=== PATIENT | female | born 1950 | race African-American/Black ===

== ENCOUNTER 2016-09-22 19:01 | Emergency (ER) | payer MEDICAID ==
[~2016-09-22] VITALS: Ht 165.1 cm; Wt 81.0 kg
[~2016-09-22 19:01] MED LIST: ALBUTEROL; CLARITIN; INHALER; LOSARTAN; MOTRIN; ZANTAC
[2016-09-22] MEDS ORDERED: METHYLPREDNISOLONE SOD SUCC 125 MG/2 ML VIAL IV STA (20:26)
[2016-09-22] MEDS ORDERED: ALBUTEROL (0.083%) 2.5MG/3ML NEB HHN STA (20:26)
[2016-09-22] MEDS ORDERED: IPRATROPIUM BROMIDE (0.02%) 0.5MG/2.5ML NEB HHN STA (20:26)
[2016-09-22] MEDS ORDERED: MAGNESIUM 2 G PREMIX 50 ML IV ONE (20:30)
[2016-09-22 21:06] LABS: BASOPHILS % 0.5 % (0.0-2.0); HEMATOCRIT. 43.1 % (36.0-48.0); HEMOGLOBIN. 14.4 g/dL (12.0-16.0); LYMPHOCYTES % 16.6 % (20.0-50.0); MEAN CORPUSCULAR HEMOGLOBIN 28.8 pg (28.0-32.0); MEAN CORPUSCULAR HGB CONC 33.4 g/dL (31.0-37.0); MEAN CORPUSCULAR VOLUME 86.5 fL (81.0-99.0); MEAN PLATELET VOLUME 7.9 fl (7.4-10.4); MONOCYTES % 1.6 % (2.0-8.0); NEUTROPHILS % 81.3 % (40.0-76.0); PLATELET 371 x1000/uL (130-400); RED BLOOD CELL COUNT 4.98 mill/uL (4.2-5.4); RED CELL DISTRIBUTION WIDTH 14.4 % (11.6-14.6); WHITE BLOOD COUNT 12.4 x1000/uL (4.5-11.0)
[2016-09-22 21:13] LABS: ALBUMIN 4.3 g/dL (3.4-5.0); ANION GAP 17; CALCIUM 9.8 mg/dL (8.5-10.1); CARBON DIOXIDE 24 mEq/L (21-32); CHLORIDE 105 mEq/L (98-107); INDEX HEMOLYSI 1 (1-3); INDEX ICTERIC 1 (1-4); INDEX LIPEMIC 1 (1-3); UREA NITROGEN BLOOD 9 mg/dL (7-21)
[2016-09-22] MEDS ORDERED: MAGNESIUM/ALUMINUM HYDROXIDE/SIMETHICONE 30ML UDC PO ONE (21:15)
[2016-09-22 21:17] LABS: BG BASE EXCESS 0.9 mmol/L (-2.0-2.0); BG CARBOXYHEMOGLOBIN 0.1 % (0.5-1.5); BG DEOXYHEMOGLOBIN 1.4 % (0.0-5.0); BG FRACTION INSPIRED OXYGEN 28; BG HCO3 ACT 19.7 mmol/L (22.0-26.0); BG METHEMOGLOBIN 0.3 % (0.0-1.5); BG OXYGEN SATURATION 98.6 % (92.0-98.5); BG OXYHEMOGLOBIN 98.2 % (94.0-97.0); BG PCO2 19.9 mmHg (35.0-45.0); BG PH 7.614 (7.350-7.450); BG PO2 127.7 mmHg (75.0-100.0); BG SAMPLE SITE LEFT RADIAL; BG VENT MODE NASAL CANNULA
[2016-09-22 21:20] LABS: ALANINE AMINOTRANSFERASE 34 IU/L (13-61); NT PRO B-TYPE NATRIURETIC PEP 114 pg/mL (5-125); TROPONIN I < 0.02 ng/mL (0.00-0.04); eGFR > 60 mL/min (>60)
[2016-09-22 21:24] LABS: LACTIC ACID 2.5 mmol/L (0.4-2.0)
[2016-09-22] MEDS ORDERED: LEVOFLOXACIN 750MG PREMIX 150 ML IV ONE (23:15)
[2016-09-22 23:27] VITALS: BP 164/101
== END 2016-09-23 00:15 | disposition left against medical advice (07) ==
LOC: ER 19:01
DX: J44.9 Chronic obstructive pulmonary disease, unspecified (principal); I10 Essential (primary) hypertension; K21.9 Gastro-esophageal reflux disease without esophagitis; Z88.6 Allergy status to analgesic agent; Z88.8 Allergy status to other drugs, medicaments and biological substances; Z79.899 Other long term (current) drug therapy
CPT/HCPCS: 36415; 36600; 71010; 80053; 82375; 82805; 83605; 83880; 84484; 85025; 87040; 93005; 94640; 96365; 96366; 96368; 96375; 99285; J1956; J2930; J3475; J7611; Z7610

== ENCOUNTER 2016-09-23 20:36 | Emergency (ER) | payer MEDICAID ==
[~2016-09-23] VITALS: Ht 165.1 cm; Wt 115.0 kg
[2016-09-23] MEDS ORDERED: FAMOTIDINE 20MG/2ML VIAL IV STA (23:48)
[2016-09-23] MEDS ORDERED: MAGNESIUM/ALUMINUM HYDROXIDE/SIMETHICONE 30ML UDC PO STA (23:48)
[2016-09-23] MEDS ORDERED: ONDANSETRON HCL 4MG/2ML VIAL IV STA (23:48)
[2016-09-23] MEDS ORDERED: VISCOUS LIDOCAINE 2% 15 ML UDC PO STA (23:48)
[2016-09-24] MEDS ORDERED: SODIUM CHLORIDE 0.9% 500 ML IV ONE
[2016-09-24] MEDS ORDERED: KETOROLAC 30MG/ML VIAL IV ONE
[2016-09-24 00:27] LABS: BASOPHILS % 0.3 % (0.0-2.0); CHLORIDE 103 mEq/L (98-107); EOSINOPHILS % 0.1 % (0.0-5.0); HEMATOCRIT. 40.3 % (36.0-48.0); HEMOGLOBIN. 13.3 g/dL (12.0-16.0); INDEX HEMOLYSI 1 (1-3); INDEX ICTERIC 1 (1-4); INDEX LIPEMIC 1 (1-3); LYMPHOCYTES % 22.3 % (20.0-50.0); MEAN CORPUSCULAR HEMOGLOBIN 29.1 pg (28.0-32.0); MEAN CORPUSCULAR HGB CONC 33.1 g/dL (31.0-37.0); MEAN CORPUSCULAR VOLUME 87.8 fL (81.0-99.0); MEAN PLATELET VOLUME 7.9 fl (7.4-10.4); MONOCYTES % 8.1 % (2.0-8.0); NEUTROPHILS % 69.2 % (40.0-76.0); PLATELET 348 x1000/uL (130-400); RED BLOOD CELL COUNT 4.59 mill/uL (4.2-5.4); RED CELL DISTRIBUTION WIDTH 14.4 % (11.6-14.6); WHITE BLOOD COUNT 19.3 x1000/uL (4.5-11.0)
[2016-09-24 00:35] LABS: ALANINE AMINOTRANSFERASE 32 IU/L (13-61); ALBUMIN 4.1 g/dL (3.4-5.0); ANION GAP 13; CALCIUM 9.3 mg/dL (8.5-10.1); CARBON DIOXIDE 26 mEq/L (21-32); UREA NITROGEN BLOOD 22 mg/dL (7-21); eGFR 55 mL/min (>60)
[2016-09-24 02:17] VITALS: BP 158/86
[2016-09-24 02:26] LABS: CLARITY URINE CLEAR (CLEAR); COLOR URINE YELLOW (YELLOW); GLUCOSE URINE NEGATIVE (NEGATIVE); KETONES URINE NEGATIVE (NEGATIVE); LEUKOCYTE ESTERASE URINE TRACE (NEGATIVE); NITRITE URINE NEGATIVE (NEGATIVE); OCCULT BLOOD URINE NEGATIVE (NEGATIVE); PROTEIN URINE NEGATIVE (NEGATIVE); SPECIFIC GRAVITY URINE 1.007 (1.005-1.030); UROBILINOGEN URINE 0.2 E.U./dL (0.2-1.0)
[2016-09-24 03:07] LABS: BACTERIA URINE TRACE; RBC URINE 0-2 /hpf (0-2); SQUAMOUS EPITHELIAL CELL URINE 1+ /lpf (RARE/1+); WBC URINE 0-2 /hpf (0-2); YEAST URINE 1+
== END 2016-09-24 02:23 | disposition left against medical advice (07) ==
LOC: ER 21:20
DX: K21.9 Gastro-esophageal reflux disease without esophagitis (principal); R10.31 Right lower quadrant pain; R06.02 Shortness of breath; I10 Essential (primary) hypertension; Z88.5 Allergy status to narcotic agent; Z91.041 Radiographic dye allergy status; Z79.899 Other long term (current) drug therapy; Z90.49 Acquired absence of other specified parts of digestive tract; Z90.710 Acquired absence of both cervix and uterus
CPT/HCPCS: 36415; 71010; 80053; 81001; 83605; 85025; 87040; 93005; 96374; 96375; 99285; J1885; J2405; J3490; J7040; Z7610

== ENCOUNTER 2023-01-24 04:50 | Emergency (ER) | payer MEDICARE, MEDICAID ==
[~2023-01-24] VITALS: Ht 167.6 cm; Wt 122.0 kg
[2023-01-24 05:06] VITALS: O2SAT 99
[2023-01-24 06:00] LABS: HEMATOCRIT. 40.5 % (36.0-48.0); MEAN CORPUSCULAR HEMOGLOBIN 29.1 pg (28.0-32.0); MEAN CORPUSCULAR HGB CONC 32.2 g/dL (31.0-37.0); MEAN CORPUSCULAR VOLUME 90.3 fL (81.0-99.0); MEAN PLATELET VOLUME 8.5 fl (7.4-10.4); PLATELET 263 x1000/uL (130-400); RED BLOOD CELL COUNT 4.49 mill/uL (4.2-5.4); RED CELL DISTRIBUTION WIDTH 14.6 % (11.6-14.6); WHITE BLOOD COUNT 10.4 x1000/uL (4.5-11.0)
[2023-01-24 06:07] LABS: DIFFERENTIAL COMMENT 1
[2023-01-24 06:12] LABS: CHLORIDE 109 mEq/L (98-107); INDEX HEMOLYSI 2 (1-3); INDEX ICTERIC 1 (1-4); INDEX LIPEMIC 1 (1-3); POTASSIUM 3.9 mEq/L (3.5-5.1); SODIUM 139 mEq/L (136-145)
[2023-01-24 06:18] LABS: ALANINE AMINOTRANSFERASE 33 IU/L (13-61); ALBUMIN 3.9 g/dL (3.4-5.0); ASPARTATE AMINOTRANSFERASE 27 IU/L (15-37); BILIRUBIN TOTAL 0.8 mg/dL (0.1-1.0); CALCIUM 9.2 mg/dL (8.5-10.1); CARBON DIOXIDE 21 mEq/L (21-32); CREATININE 0.8 mg/dL (0.6-1.3); GLUCOSE 111 mg/dL (70-105); PROTEIN TOTAL 8.1 g/dL (6.0-8.3); UREA NITROGEN BLOOD 15 mg/dL (7-21)
[2023-01-24 06:53] LABS: CLARITY URINE CLOUDY (CLEAR); COLOR URINE YELLOW (YELLOW); GLUCOSE URINE NEGATIVE (NEGATIVE); KETONES URINE NEGATIVE (NEGATIVE); LEUKOCYTE ESTERASE URINE 3+ (NEGATIVE); NITRITE URINE POSITIVE (NEGATIVE); OCCULT BLOOD URINE 1+ (NEGATIVE); PROTEIN URINE TRACE (NEGATIVE); SPECIFIC GRAVITY URINE 1.007 (1.005-1.030)
[2023-01-24 06:56] LABS: BACTERIA URINE 4+; SQUAMOUS EPITHELIAL CELL URINE NONE SEEN /lpf (RARE/1+)
[2023-01-24 07:08] LABS: PLATELET ESTIMATE NORMAL
[2023-01-24 07:50] LABS: YEAST URINE NONE SEEN
[2023-01-24] MEDS ORDERED: CEFTRIAXONE 1GM PREMIX 50 ML IV ONE (08:15)
[2023-01-24] MEDS ORDERED: IBUP-1525 MT (11:49)
[2023-01-24] MEDS ORDERED: ACET-2708 MT (11:49)
[2023-01-24] MEDS ORDERED: ONDA4TAB50 MT (11:49)
[2023-01-24] MEDS ORDERED: CEFD300C3 MT (11:49)
[2023-01-24 12:37] VITALS: BP 144/74; PULSE 76; RESP 20; TEMP 99.4
== END 2023-01-24 08:00 | disposition home or self-care (01) ==
LOC: ER 04:50
DX: R10.9 Unspecified abdominal pain (principal); R11.2 Nausea with vomiting, unspecified; K21.9 Gastro-esophageal reflux disease without esophagitis; I10 Essential (primary) hypertension; Z90.710 Acquired absence of both cervix and uterus; Z90.49 Acquired absence of other specified parts of digestive tract; Z20.822 Contact with and (suspected) exposure to COVID-19
CPT/HCPCS: 80053; 81003; 83605; 83690; 85025; 87040; 87086; 87186; 87077; 36415; 74176; 96365; 99285; 87426; J0696; C9803; Z7610

== ENCOUNTER 2023-12-12 04:05 | Emergency (ER) | payer MEDICARE, MEDICAID ==
[~2023-12-12] VITALS: Ht 167.6 cm; Wt 82.0 kg
[~2023-12-12 04:05] MED LIST changes: +ACET-2708 MT; +CEFD300C3 MT; +IBUP-1525 MT; +ONDA4TAB50 MT
[2023-12-12] MEDS ORDERED: PREDNISONE 20MG TABLET PO STA (04:25)
[2023-12-12] MEDS: ALBUTEROL (0.083%) 2.5MG/3ML NEB HHN STA (04:41)
[2023-12-12] MEDS: IPRATROPIUM BROMIDE (0.02%) 0.5MG/2.5ML NEB HHN STA (04:41)
[2023-12-12 05:19] VITALS: PULSE 77; RESP 20; O2SAT 94
[2023-12-12] MEDS: PREDNISONE 20MG TABLET PO NR (05:27)
[2023-12-12 06:01] LABS: BASOPHILS % 0.4 % (0.0-2.0); HEMOGLOBIN. 12.8 g/dL (12.0-16.0); LYMPHOCYTES % 34.4 % (20.0-50.0); MEAN CORPUSCULAR HEMOGLOBIN 29.6 pg (28.0-32.0); MEAN CORPUSCULAR HGB CONC 32.8 g/dL (31.0-37.0); MEAN CORPUSCULAR VOLUME 90.2 fL (81.0-99.0); MEAN PLATELET VOLUME 8.5 fl (7.4-10.4); MONOCYTES % 10.4 % (2.0-8.0); NEUTROPHILS % 53.8 % (40.0-76.0); PLATELET 251 x1000/uL (130-400); RED BLOOD CELL COUNT 4.32 mill/uL (4.2-5.4); RED CELL DISTRIBUTION WIDTH 15.1 % (11.6-14.6); WHITE BLOOD COUNT 9.7 x1000/uL (4.5-11.0)
[2023-12-12] MEDS: PREDNISONE 20MG TABLET PO STA (06:07)
[2023-12-12 06:10] LABS: CHLORIDE 107 mEq/L (98-107); POTASSIUM 3.7 mEq/L (3.5-5.1); SODIUM 142 mEq/L (136-145)
[2023-12-12 06:11] LABS: CARBON DIOXIDE 28 mEq/L (21-32)
[2023-12-12 06:12] LABS: CALCIUM 9.8 mg/dL (8.7-10.4)
[2023-12-12 06:16] LABS: CREATININE 0.8 mg/dL (0.6-1.0); GLUCOSE 130 mg/dL (70-105); UREA NITROGEN BLOOD 13 mg/dL (9-23)
[2023-12-12 06:18] LABS: TROPONIN I HIGH SENSITIVITY < 4 ng/L (3.0-34)
[2023-12-12 06:19] LABS: PARTIAL THROMBOPLASTIN TIME 27.6 sec (23.4-31.0)
[2023-12-12 07:55] VITALS: BP 150/80; PULSE 74; RESP 18; TEMP 97.8
[2023-12-12] MEDS ORDERED: P50 MT (07:59)
== END 2023-12-12 08:40 | disposition home or self-care (01) ==
LOC: ER 04:26
DX: J45.901 Unspecified asthma with (acute) exacerbation (principal); I10 Essential (primary) hypertension; Z88.5 Allergy status to narcotic agent; Z91.041 Radiographic dye allergy status; Z79.899 Other long term (current) drug therapy; Z98.890 Other specified postprocedural states
CPT/HCPCS: 99285; 71045; 80048; 83880; 85025; 85610; 85730; 84484; 36415; 94640; 93005; J7512

== ENCOUNTER 2024-01-05 12:52 | Emergency (ER) | payer MEDICARE, MEDICAID ==
[~2024-01-05] VITALS: Ht 165.1 cm; Wt 127.0 kg
[~2024-01-05 12:52] MED LIST changes: +P50 MT
[2024-01-05 13:01] VITALS: BP 197/88; PULSE 81; RESP 20; TEMP 98; O2SAT 99
[2024-01-05 13:22] LABS: BASOPHILS % 0.5 % (0.0-2.0); EOSINOPHILS % 0.5 % (0.0-5.0); HEMATOCRIT. 39.9 % (36.0-48.0); LYMPHOCYTES % 28.4 % (20.0-50.0); MEAN CORPUSCULAR HEMOGLOBIN 29.1 pg (28.0-32.0); MEAN CORPUSCULAR HGB CONC 32.5 g/dL (31.0-37.0); MEAN CORPUSCULAR VOLUME 89.5 fL (81.0-99.0); MEAN PLATELET VOLUME 8.1 fl (7.4-10.4); MONOCYTES % 8.4 % (2.0-8.0); NEUTROPHILS % 62.2 % (40.0-76.0); PLATELET 272 x1000/uL (130-400); RED BLOOD CELL COUNT 4.46 mill/uL (4.2-5.4); WHITE BLOOD COUNT 9.3 x1000/uL (4.5-11.0)
[2024-01-05 14:06] LABS: CHLORIDE 108 mEq/L (98-107); POTASSIUM 4.2 mEq/L (3.5-5.1); SODIUM 140 mEq/L (136-145)
[2024-01-05 14:07] LABS: CARBON DIOXIDE 25 mEq/L (21-32)
[2024-01-05 14:12] LABS: CREATININE 0.8 mg/dL (0.6-1.0); GLUCOSE 96 mg/dL (70-105)
[2024-01-05 14:13] LABS: UREA NITROGEN BLOOD 8 mg/dL (9-23)
[2024-01-05 14:14] LABS: ALANINE AMINOTRANSFERASE 18 IU/L (10-49); ALBUMIN 4.7 g/dL (3.2-4.8); ASPARTATE AMINOTRANSFERASE 19 IU/L (<34)
[2024-01-05 14:15] LABS: BILIRUBIN TOTAL 1.1 mg/dL (0.1-1.0)
[2024-01-05 14:17] LABS: TROPONIN I HIGH SENSITIVITY < 4 ng/L (3.0-34)
[2024-01-05] MEDS: DEXAMETHASONE 10 MG/ML VIAL IV ONE (15:18)
[2024-01-05] MEDS ORDERED: P20 MT (16:04)
== END 2024-01-05 16:35 | disposition left against medical advice (07) ==
LOC: ER 12:52
DX: R06.02 Shortness of breath (principal); J45.909 Unspecified asthma, uncomplicated; I10 Essential (primary) hypertension; Z98.890 Other specified postprocedural states; Z88.5 Allergy status to narcotic agent; Z91.040 Latex allergy status
CPT/HCPCS: 99285; 70490; 96374; 71045; 80053; 83690; 85025; 84484; 36415; 71250; 93005; J1100

== ENCOUNTER 2024-12-16 10:50 | Inpatient (IN) | payer MEDICARE, MEDICAID ==
[~2024-12-16] VITALS: Ht 157.5 cm; Wt 91.0 kg
[~2024-12-16 10:50] MED LIST changes: +P20 MT
[2024-12-16 10:56] VITALS: O2SAT 99
[2024-12-16] MEDS: SODIUM CHLORIDE 0.9% (SEPSIS BOLUS) IV ONE (11:32)
[2024-12-16 11:42] LABS: HEMATOCRIT. 40.4 % (36.0-48.0); HEMOGLOBIN. 13.3 g/dL (12.0-16.0); MEAN PLATELET VOLUME 7.9 fl (7.4-10.4); PLATELET 263 x1000/uL (130-400); RED BLOOD CELL COUNT 4.53 mill/uL (4.2-5.4); RED CELL DISTRIBUTION WIDTH 15.2 % (11.6-14.6)
[2024-12-16 11:43] LABS: CLARITY URINE CLEAR (CLEAR); COLOR URINE YELLOW (YELLOW); GLUCOSE URINE NEGATIVE (NEGATIVE); KETONES URINE NEGATIVE (NEGATIVE); LEUKOCYTE ESTERASE URINE 2+ (NEGATIVE); NITRITE URINE NEGATIVE (NEGATIVE); OCCULT BLOOD URINE 1+ (NEGATIVE); PH URINE 7.0 (4.5-8.0); PROTEIN URINE NEGATIVE (NEGATIVE); SPECIFIC GRAVITY URINE 1.010 (1.005-1.030); UROBILINOGEN URINE 0.2 E.U./dL (0.2-1.0)
[2024-12-16] MEDS: PIPERACILLIN/TAZO 3.375G/50ML 50 ML IV ONE (11:43)
[2024-12-16 11:52] LABS: INR 1.0
[2024-12-16 12:00] LABS: CREATININE 1.0 mg/dL (0.6-1.0)
[2024-12-16 12:01] LABS: TROPONIN I HIGH SENSITIVITY < 4 ng/L (3.0-34); UREA NITROGEN BLOOD 19 mg/dL (9-23)
[2024-12-16 12:02] LABS: ASPARTATE AMINOTRANSFERASE 17 IU/L (<34)
[2024-12-16 12:03] LABS: BILIRUBIN DIRECT 0.3 mg/dL (<=3.0); BILIRUBIN TOTAL 0.9 mg/dL (0.1-1.0); PROTEIN TOTAL 7.6 g/dL (6.0-8.3)
[2024-12-16 12:13] LABS: LACTIC ACID 2.1 mmol/L (0.4-2.0)
[2024-12-16 12:25] LABS: SQUAMOUS EPITHELIAL CELL URINE 2+ /lpf (RARE/1+)
[2024-12-16 12:27] LABS: BACTERIA URINE 2+
[2024-12-16 12:55] LABS: BAND% 15.0 % (1.0-6.0); LYMPHOCYTES % MANUAL 4.0 % (20.0-60.0); MONOCYTES % MANUAL 1.0 % (2.0-8.0); NEUTROPHILS % MANUAL 80.0 % (45.0-75.0); PLATELET ESTIMATE NORMAL
[2024-12-16 14:19] VITALS: BP 119/77; PULSE 91; RESP 21; TEMP 37; O2SAT 97
[2024-12-16] MEDS ORDERED: DOCUSATE SODIUM 100MG CAPSULE PO PRN (15:00)
[2024-12-16] MEDS ORDERED: IPRATROPIUM/ALBUTEROL 0.5-3(2.5)MG/3ML NEB HHN PRN (15:00)
[2024-12-16] MEDS ORDERED: MORPHINE SULFATE 2 MG/ML INJ (NOT FOR IM USE) IV PRN (15:00)
[2024-12-16] MEDS ORDERED: ACETAMINOPHEN 325MG TABLET PO PRN ×2 (15:00)
[2024-12-16] MEDS ORDERED: ONDANSETRON HCL 4MG/2ML INJ IV PRN (15:00)
[2024-12-16] MEDS ORDERED: HYDROCODONE/ACETAMINOPHEN 5/325MG TABLET PO PRN (15:00)
[2024-12-16] MEDS ORDERED: SODIUM CHLORIDE 0.9% 1,000 ML IV SCH (15:00)
[2024-12-16] MEDS ORDERED: PIPERACILLIN/TAZO 3.375G/50ML 50 ML IV SCH (22:00)
== END 2024-12-16 15:00 | disposition left against medical advice (07) | DRG 392 ==
LOC: ER 10:50 → EDBEDREQ 12:30 → ENRESERV 14:01 → 3WST 14:26
PROVIDERS: ADMIT Family Medicine Adult Medicine; ATTEND Family Medicine Adult Medicine
DX: K57.32 Diverticulitis of large intestine without perforation or abscess without bleeding (principal); E87.20 Acidosis, unspecified; I10 Essential (primary) hypertension; J45.909 Unspecified asthma, uncomplicated; D72.825 Bandemia; Z53.29 Procedure and treatment not carried out because of patient's decision for other reasons; Z88.5 Allergy status to narcotic agent; Z90.49 Acquired absence of other specified parts of digestive tract; Z91.013 Allergy to seafood; Z91.041 Radiographic dye allergy status
CPT/HCPCS: 36415; 74176; 80048; 80076; 81003; 83605; 83735; 84145; 84484; 85025; 87077; 87186; 93005; 99291; A4606; J2543; J7030